=== PATIENT | female | born 1990 | race Caucasian/White ===

== ENCOUNTER 2017-07-20 03:03 | Emergency (ER) | payer OTHER, SELFPAY ==
[2017-07-20] MEDS ORDERED: Lidocaine 1% (PF) 30 ML VIAL ONE (03:22)
[2017-07-20] MEDS ORDERED: Lidocaine 1% w/Epinephrine 1:100K 20 ML VIAL ONE (03:23)
[2017-07-20] MEDS ORDERED: Ketorolac Tromethamine 60 MG/2 ML VIAL ONE (03:42)
== END 2017-07-20 04:30 | disposition home or self-care (01) ==
LOC: ERS 03:03
DX: M25.461 Effusion, right knee (principal); E28.2 Polycystic ovarian syndrome; F41.9 Anxiety disorder, unspecified; F42.9 Obsessive-compulsive disorder, unspecified
CPT/HCPCS: 20611; 96372; J1885; J2001

== ENCOUNTER 2021-12-19 17:08 | Emergency (ER) | payer OTHER ==
[2021-12-19 19:14] LABS: #Eosinphils 0.1 thou/uL (0.0-0.7); #Lymphocytes 3.2 thou/uL (1.20-3.40); #Monocytes 0.7 thou/uL (0.11-0.59); #Neutrophils 8.1 thou/uL (1.40-6.50); %Basophils 0.2 % (0.0-1.0); %Eosinophils 0.7 % (0.0-10.0); %Lymphocytes 26.5 % (21.0-51.0); %Monocytes 5.4 % (0.0-10.0); %Neutrophils 67.2 % (42.0-75.0); Hemoglobin 12.7 g/dL (12.0-16.0); Mean Corpuscular Hemoglobin 24.2 pg (27.0-31.0); Mean Corpuscular Volume 75.8 fl (78.0-98.0); Mean Platelet Volume 7.6 fL (7.4-10.4); Platelet Count 298 thou/uL (130-400); RBC Distribution Width 13.5 % (11.5-14.5); Red Blood Cell (RBC) Count 5.24 mill/uL (4.20-5.40)
[2021-12-19 19:44] LABS: BHCG - Serum Negative (NEGATIVE); Pregs Control Bar Appear? YES (CONTROL BAR)
[2021-12-19 19:45] LABS: Pregs Control Background? CLEAR/WHITE (CLR/WHITE)
[2021-12-19 19:48] LABS: ALT (SGPT) 39 U/L (8-55); AST (SGOT) 21 U/L (5-34); Albumin 4.5 g/dL (3.5-5.0); Alkaline Phosphatase 73 U/L (40-110); Anion Gap 15 mmol/L (10-20); Bilirubin, Total 0.4 mg/dL (0.2-1.2); Calc. Creatinine Clearance 0 mL/min (70-130); Carbon Dioxide 24 mmol/L (22-29); Chloride 104 mmol/L (98-107); Estimated GFR 118; Globulin 3.4 g/dL (2.4-3.5); Glucose 95 mg/dL (70-105); Potassium 3.8 mmol/L (3.5-5.1); Protein, Total 7.9 g/dL (6.0-8.3); Sodium 139 mmol/L (136-145)
[2021-12-19 19:52] LABS: BUN (Urea Nitrogen) 16 mg/dL (7.0-18.7)
== END 2021-12-19 23:00 | disposition home or self-care (01) ==
LOC: ERS 17:08
DX: G97.1 Other reaction to spinal and lumbar puncture (principal)
CPT/HCPCS: 36415; 62270; 80053; 84703; 85025